=== PATIENT | female | born 1950 | race Caucasian/White ===

== ENCOUNTER 2016-03-26 13:01 | Inpatient (IN) | payer OTHER, MEDICARE ==
[~2016-03-26] VITALS: Ht 162.6 cm; Wt 64.0 kg
--- NOTE | ~2016-03-26 | HC ---
[facility] [place] [address] CONSULTATION Name: JD DREW Room #: 309-P ADM IN M.R.#: [id number] Admission: 03/26/16 Attend Phys: Valerio Robbins Discharge: Date of : 46 Report #: [id number] THIS REPORT FOR: //name// CC: Gus Robbins DATE OF SERVICE: 03/26/2016 REASON FOR CONSULTATION: Respiratory failure. IMPRESSION: 1. Respiratory failure. Exacerbation of chronic obstructive pulmonary disease. 2. Possible pneumonia. 3. Anemia. 4. Leukocytosis. 5. Gastroesophageal reflux disease. PLAN: Agree with IV antibiotics, corticosteroids, workup as pneumonia. We will do CT PE protocol and aerosol therapy. We will follow closely with you. HISTORY OF PRESENT ILLNESS: A 65-year-old female treated with p.o. antibiotics as an outpatient. She relates about 5 rounds, however, still with cough, shortness breath, and weakness. Found to have a temperature today and worsening. MEDICATIONS: Include calcium, Protonix, pravastatin, losartan, Zyrtec, Mucinex, Ventolin, azelastine, Refresh, prednisone 20 mg, Advair 250, Spiriva, has been on Cipro and albuterol. PAST HISTORY: Includes COPD, GERD, pneumothorax, has had bladder leakage. PAST SURGICAL HISTORY: Included ____, pneumolysis, right thoracotomy with pleural decortication, and ovary removal in 80. FAMILY HISTORY: Positive for heart disease and CVA. SOCIAL HISTORY: Positive tobacco, quit greater than 20 years ago. Negative significant ETOH. ALLERGIES: MORPHINE. REVIEW OF SYSTEMS: Positive shortness breath, cough. No definite chest pain. No nausea or vomiting. Positive GERD. Positive seasonal allergy. Positive back pain in the past. PHYSICAL EXAMINATION: [facility] [address] [place] [address] CONSULTATION Name: JD DREW Room #: 309-P [facility] IN M.R.#: [id number] Admission: 03/26/16 Attend Phys: Valerio Robbins Discharge: Date of : 46 Report #: [id number] VITAL SIGNS: Sat 99%. Vitals not in computer yet. LUNGS: Coarse bilateral. HEART: Regular. Sinus is nontender. EXTREMITIES: Showed no edema or calf tenderness. NEUROLOGIC: Alert and oriented, recognized me. LABORATORY DATA: BUN 38, creatinine 1.2, potassium 5, calcium 10.2. White count 15.1, hemoglobin 9, platelets 599. We will work up her for anemia also. <ELECTRONICALLY SIGNED> By: Hardeep Grissom MD 03/27/161910 20 30 Hardeep Grissom MD /nt
--- NOTE | ~2016-03-26 | CNG ---
[facility] [address] [place] [address] CYTO-NONGYN REPORT PROCEDURE Name: JD MORALES Room #: 309-P ADM IN M.R.#: [id number] Admission: 03/26/16 Date of : 46 Discharge: Report #: [id number] Path Case #: [id number] CYTOPATHOLOGY REPORT COLLECTION DATE: 04/03/2016 RECEIVED DATE: 04/03/2016 SUBMITTING PHYS: Dr. Hardeep Grissom OTHER PHYS: Dr. Valerio Hernandez CLINICAL HISTORY: COPD Exacerbation. SPECIMEN(S) RECEIVED: A.Sputum * * * * * * * * * * * * FINAL DIAGNOSIS: A. Sputum: - No malignant cells identified. -Alveolar macrophages, occasional bronchial epithelial cells, squamous epithelial cells, amorphous debris and acute and chronic inflammatory cells identified. PATHOLOGIST: Shey Barrett M.D. REPORT ELECTRONICALLY SIGNED BY: Shey Barrett M.D. DATE/TIME: 04/04/2016 10:29 * * * * * * * * * * * * GROSS PATHOLOGY: A. Sputum: The specimen is submitted unfixed, labeled "Jd Morales". Received by the Cytology Department is less than one mL of yellow fluid. One ThinPrep slide was prepared. (clt 04.03.2016) BOX CAR LOADER(S): MICHELINE Michelle([facility]) INITIAL CPT CODE(S): A; 14948 Professional services performed by [facility] at [facility] [address], [place] [address] Technical services performed by [facility] at [address] [place] [address]., [address], [place] [address]. [facility] [address] [place] [address], [address] [place], [place] [address] [place] [address] [place] [address] CYTO-NONGYN REPORT PROCEDURE Name: VIKIJDCathy VELASQUEZ Room #: 309-P ADM IN M.R.#: [id number] Admission: 03/26/16 Date of : 46 Discharge: Report #: [id number] Path Case #: [id number] PHONE: [phone] DIRECTOR: Charbel Downey M.D. * * * END OF REPORT * * *
--- NOTE | ~2016-03-26 | S ---
[facility] [place] [address] [place] [address] SURGICAL PATH RPT PROCEDURE Name: JD MORALES EVA Room #: 309-P ADM IN M.R.#: [id number] Admission: 03/26/16 Date of : 46 Discharge: Report #: [id number] Path Case #: [id number] PATHOLOGY REPORT COLLECTION DATE: 03/30/2016 RECEIVED DATE: 03/30/2016 SUBMITTING PHYS: Dr. Selvin Rivera OTHER PHYS: Dr. Valerio Hernandez SPECIMEN(S) RECEIVED: A.Polyps cecum x2 B.Polyp ascending colon * * * * * * * * * * * * FINAL DIAGNOSIS: A. "Polyps cecum x 2", biopsy: - Tubular adenoma; no high grade dysplasia. B. "Polyp ascending colon", biopsy: - Tubular adenoma; no high grade dysplasia. (CLW:all; d/t: 04/02/2016) PATHOLOGIST: Shey Barrett M.D. REPORT ELECTRONICALLY SIGNED BY: Shey Barrett M.D. DATE/TIME: 04/02/2016 21:35 * * * * * * * * * * * * GROSS PATHOLOGY: A. Received in formalin labeled "Jd Morales and polyps cecum 2," are 2 segments of [place] soft tissue measuring 0.8 x 0.2 x 0.2 cm in aggregate dimensions and measuring 0.2 and 0.6 cm in maximum dimension. The specimen is submitted entirely in cassette A1. B. Received in formalin labeled "Jd Morales and polyp ascending colon," is a segment of [place] soft tissue measuring 0.5 cm in maximum dimension. The specimen is submitted entirely in cassette B1. (TTL; 03/30/2016) CLINICAL HISTORY: Anemia, Hemoccult positive INITIAL CPT CODE(S): A; 66081 B; 38596 Professional [facility] by [facility] [address] [place] [address] SURGICAL PATH RPT PROCEDURE Name: JD MORALES Room #: 309-P ADM IN .R.#: [id number] Admission: 03/26/16 Date of : 46 Discharge: Report #: [id number] Path Case #: [id number] [address] [facility] , [place] [address] Technical services performed by [facility] at [address] [place] [address], [address] [address]. [facility] [place] [address] PHONE: [phone] DIRECTOR: Charbel Downey M.D. * * * END OF REPORT * * *
[~2016-03-26 13:01] MED LIST: 8 HOUR PAIN RE650 M1 PO; ACETAMINOPHEN325 M1 PO; ADULT LOW DOSE81 MG PO; ADVAIR 250-501 EACH INH; AFLURIA 2045 MCG/0.4; ALBUTEROL2.5 MG/0.5 INH; ASPIRIN EC81 M1 PO; ASTELIN30 ML NS; AVELOX 400 MG400 MG PO; AZITHROMYCIN 2250 MG PO; CALCIUM + VIT1 EACH PO; CALCIUM 500 +1 EAC5 PO; CENTRUM SILVER1 EAC4 PO; CETAPHIL MOISTU90 GM TOP; CIPRO500 MG PO; CLARITIN10 M2 PO; DUONEB 2.5-0.5 M3 ML INH; FLAGYL500 MG PO; MUCINEX TA600 MG/TA1 PO; MUCINEX TA600 MG/TA2 PO; NORCO 5-325 TA1 EACH PO; NORVASC5 M1 PO; OXYCODONE-ACET1 EACH PO; PANTOPRAZOLE SO40 M1 PO; PNEUMOVAX25 MCG/0.5; PRAVACHOL40 MG PO; PREDNISONE 10 M10 M1 PO; PREDNISONE 10 M10 MG PO; SPIRIVA INH; SPIRIVA PO; TAMIFLU PO; VENTOLIN HFA INH8 GM INH; ZANTAC 150MG T150 M1 PO; ZOCOR40 MG PO; ZYRTEC 10 MG TA10 MG PO
[2016-03-26] MEDS ORDERED: CIPRO500 MG PO (13:23)
[2016-03-26] MEDS ORDERED: CALCIUM GUMMIE1 EACH PO (13:26)
[2016-03-26] MEDS ORDERED: REFRESH OPTIVE1 EACH OP (13:26)
[2016-03-26] MEDS ORDERED: PRAVACHOL40 M1 PO (13:27)
[2016-03-26] MEDS ORDERED: CENTRUM SILVER1 EAC4 PO (13:28)
[2016-03-26] MEDS ORDERED: COZAAR 50 MG TA50 M2 PO (13:29)
[2016-03-26] MEDS ORDERED: LUTEIN 15 MG S1 EACH PO (13:30)
[2016-03-26 15:00] LABS: HEMATOCRIT 28.1 % (37.0-47.0); MCH 27.3 pg (26.0-34.0); MCHC 31.9 % (28.0-37.0); MCV 85.8 fL (80.0-100.0); RBC 3.28 mil/uL (4.20-5.00); RDW 14.5 % (10.5-14.5); WBC 15.1 thou/uL (4.0-11.0)
[2016-03-26 15:14] LABS: CALCIUM 10.2 mg/dL (8.5-10.1); CREATININE 1.2 mg/dL (0.6-1.3)
[2016-03-26 16:35] VITALS: BP 144/61
[2016-03-26 20:00] VITALS: BP 149/55
[2016-03-27 00:08] VITALS: BP 138/51
[2016-03-27 04:41] VITALS: BP 132/50
[2016-03-27 06:08] LABS: % SATURATION 10 % (15-55); FERRITIN 32 ng/mL (15-150); FOLIC ACID > 19.9 ng/mL (>3.0); IRON 24 ug/dL (27-139); TIBC 232 ug/dL (250-450); UIBC 208 ug/dL (118-369)
[2016-03-27 06:34] LABS: ABSOLUTE NEUTROPHILS 7.1 thou/uL (1.4-8.2); BASOPHILS 0.2 % (0.0-2.0); HEMATOCRIT 26.3 % (37.0-47.0); HEMOGLOBIN 8.3 gm/dL (12.0-15.0); LYMPHOCYTES 5.7 % (24.0-44.0); MCH 27.5 pg (26.0-34.0); MCHC 31.7 % (28.0-37.0); MONOCYTES 4.3 % (1.0-8.0); PLATELET COUNT 562 thou/uL (150-400); POLYS 89.8 % (36.0-66.0); RBC 3.02 mil/uL (4.20-5.00); RDW 14.4 % (10.5-14.5); WBC 7.9 thou/uL (4.0-11.0)
[2016-03-27 07:04] LABS: MANUAL DIFF NO
[2016-03-27 08:00] VITALS: BP 149/50
[2016-03-27 16:00] VITALS: BP 135/52
[2016-03-27 20:32] VITALS: BP 143/54
[2016-03-28 04:00] VITALS: BP 137/67
[2016-03-28 07:22] VITALS: BP 151/53
[2016-03-28 16:52] VITALS: BP 176/76
[2016-03-28 19:30] VITALS: BP 165/64
[2016-03-29 03:20] VITALS: BP 160/58
[2016-03-29 06:23] LABS: HEMATOCRIT 28.3 % (37.0-47.0); HEMOGLOBIN 8.8 gm/dL (12.0-15.0); MCH 27.1 pg (26.0-34.0); MCHC 31.2 % (28.0-37.0); MCV 86.9 fL (80.0-100.0); PLATELET COUNT 618 thou/uL (150-400); RBC 3.25 mil/uL (4.20-5.00); RDW 14.7 % (10.5-14.5); WBC 14.2 thou/uL (4.0-11.0)
[2016-03-29 06:30] LABS: CALCIUM 9.8 mg/dL (8.5-10.1); CREATININE 1.2 mg/dL (0.6-1.3); MANUAL DIFF YES; POTASSIUM 4.1 mmol/L (3.5-5.1)
[2016-03-29 07:55] LABS: ABSOLUTE NEUTROPHILS 13.6 thou/uL (1.4-8.2); TOTAL CELL COUNT 100
[2016-03-29 07:56] LABS: ANISOCYTOSIS 1+; HYPOCHROMASIA 1+; OVALOCYTES FEW
[2016-03-29 08:32] VITALS: BP 137/64
[2016-03-29 11:04] VITALS: BP 169/82
[2016-03-29 18:34] VITALS: BP 170/56
[2016-03-29 19:32] VITALS: BP 161/74
[2016-03-30 02:39] VITALS: BP 154/48
[2016-03-30 05:42] LABS: HEMOGLOBIN 8.9 gm/dL (12.0-15.0); MCH 27.2 pg (26.0-34.0); MCHC 31.7 % (28.0-37.0); MCV 85.9 fL (80.0-100.0); PLATELET COUNT 574 thou/uL (150-400); RBC 3.26 mil/uL (4.20-5.00); RDW 14.5 % (10.5-14.5); WBC 12.6 thou/uL (4.0-11.0)
[2016-03-30 05:52] LABS: MANUAL DIFF YES
[2016-03-30 06:14] LABS: CALCIUM 9.3 mg/dL (8.5-10.1); CREATININE 1.1 mg/dL (0.6-1.3); POTASSIUM 4.7 mmol/L (3.5-5.1)
[2016-03-30 08:00] VITALS: BP 141/79
[2016-03-30 08:36] LABS: ABSOLUTE NEUTROPHILS 11.8 thou/uL (1.4-8.2); TOTAL CELL COUNT 100
[2016-03-30 08:37] LABS: ANISOCYTOSIS 1+; OVALOCYTES 1+
[2016-03-30 16:00] VITALS: BP 155/76
[2016-03-30 19:00] VITALS: BP 146/60
[2016-03-30 19:07] LABS: ALPHA 1 0.2 g/dL (0.0-0.4); ALPHA 2 0.9 g/dL (0.4-1.0); GAMMA 0.8 g/dL (0.4-1.8); M-SPIKE Not Observed g/dL (Not Observed)
[2016-03-31 03:41] VITALS: BP 127/50
[2016-03-31 06:09] LABS: HEMATOCRIT 26.5 % (37.0-47.0); HEMOGLOBIN 8.4 gm/dL (12.0-15.0); MCH 27.5 pg (26.0-34.0); MCHC 31.9 % (28.0-37.0); MCV 86.4 fL (80.0-100.0); RBC 3.06 mil/uL (4.20-5.00); RDW 14.7 % (10.5-14.5); WBC 11.6 thou/uL (4.0-11.0)
[2016-03-31 06:30] LABS: CALCIUM 9.2 mg/dL (8.5-10.1); CREATININE 0.9 mg/dL (0.6-1.3)
[2016-03-31 07:12] VITALS: BP 133/43
[2016-03-31 14:40] VITALS: BP 124/51
[2016-03-31 20:00] VITALS: BP 152/66
[2016-04-01 01:07] LABS: INFLUENZA B Negative (Negative); METAPNEUMOVIRUS Negative (Negative)
[2016-04-01 04:00] VITALS: BP 147/63
[2016-04-01 04:04] LABS: HEMATOCRIT 27.9 % (37.0-47.0); MCH 27.6 pg (26.0-34.0); MCHC 32.2 % (28.0-37.0); MCV 85.8 fL (80.0-100.0); RBC 3.25 mil/uL (4.20-5.00); RDW 14.8 % (10.5-14.5); WBC 11.7 thou/uL (4.0-11.0)
[2016-04-01 07:30] VITALS: BP 133/70
[2016-04-01 12:00] VITALS: BP 134/66
[2016-04-01 16:00] VITALS: BP 132/72
[2016-04-01 19:45] VITALS: BP 150/57
[2016-04-02 04:16] VITALS: BP 135/45
[2016-04-02 05:27] LABS: HEMATOCRIT 28.2 % (37.0-47.0); HEMOGLOBIN 8.8 gm/dL (12.0-15.0); MCH 27.1 pg (26.0-34.0); MCHC 31.2 % (28.0-37.0); MCV 86.9 fL (80.0-100.0); PLATELET COUNT 474 thou/uL (150-400); RBC 3.25 mil/uL (4.20-5.00); RDW 14.5 % (10.5-14.5); WBC 11.5 thou/uL (4.0-11.0)
[2016-04-02 05:33] LABS: CALCIUM 9.4 mg/dL (8.5-10.1); CREATININE 0.9 mg/dL (0.6-1.3); POTASSIUM 4.1 mmol/L (3.5-5.1)
[2016-04-02 05:34] LABS: MANUAL DIFF YES
[2016-04-02 07:48] LABS: ABSOLUTE NEUTROPHILS 10.7 thou/uL (1.4-8.2); TOTAL CELL COUNT 100
[2016-04-02 07:49] LABS: ANISOCYTOSIS 1+; MICROCYTES 1+; OVALOCYTES FEW
[2016-04-02 11:00] VITALS: BP 136/64
[2016-04-02 15:36] VITALS: BP 129/49
[2016-04-02 20:30] VITALS: BP 144/62
[2016-04-03 04:45] VITALS: BP 164/70
[2016-04-03 08:38] VITALS: BP 126/60
[2016-04-03 16:41] VITALS: BP 119/55
[2016-04-03 20:00] VITALS: BP 127/66
[2016-04-04 04:00] VITALS: BP 156/70
[2016-04-04 08:12] VITALS: BP 141/65
== END 2016-04-04 15:30 | DRG 871 ==
LOC: 3N 13:01
PROVIDERS: Family Medicine; Hospitalist; Internal Medicine Pulmonary Disease
PROC: 0DBK8ZX Excision of Ascending Colon, Via Natural or Artificial Opening Endoscopic, Diagnostic (ICD-10-PCS; principal; 2016-03-30)
PROC: 0DBH8ZX Excision of Cecum, Via Natural or Artificial Opening Endoscopic, Diagnostic (ICD-10-PCS; principal; 2016-03-30)
PROC: 0DJ08ZZ Inspection of Upper Intestinal Tract, Via Natural or Artificial Opening Endoscopic (ICD-10-PCS; principal; 2016-03-30)
DX: A41.9 Sepsis, unspecified organism (principal); J18.9 Pneumonia, unspecified organism; J96.20 Acute and chronic respiratory failure, unspecified whether with hypoxia or hypercapnia; J44.1 Chronic obstructive pulmonary disease with (acute) exacerbation; D12.0 Benign neoplasm of cecum; K44.9 Diaphragmatic hernia without obstruction or gangrene; K57.90 Diverticulosis of intestine, part unspecified, without perforation or abscess without bleeding; D50.9 Iron deficiency anemia, unspecified; K64.8 Other hemorrhoids; D12.2 Benign neoplasm of ascending colon; D63.8 Anemia in other chronic diseases classified elsewhere; K59.00 Constipation, unspecified; K21.9 Gastro-esophageal reflux disease without esophagitis; Z87.891 Personal history of nicotine dependence; Z90.710 Acquired absence of both cervix and uterus; Z90.49 Acquired absence of other specified parts of digestive tract; Z98.890 Other specified postprocedural states; Z88.8 Allergy status to other drugs, medicaments and biological substances; Z82.49 Family history of ischemic heart disease and other diseases of the circulatory system; Z82.3 Family history of stroke
CPT/HCPCS: 10795; 62110; 62900; 70005

== ENCOUNTER → 2016-06-22 | Outpatient (CLI) | payer OTHER, MEDICARE ==
[~2016-06-22] MED LIST changes: +CALCIUM GUMMIE1 EACH PO; +COZAAR 50 MG TA50 M2 PO; +LUTEIN 15 MG S1 EACH PO; +PRAVACHOL40 M1 PO; +REFRESH OPTIVE1 EACH OP
== END ==
LOC: RAD 12:44
DX: J44.9 Chronic obstructive pulmonary disease, unspecified (principal); R06.02 Shortness of breath; J98.11 Atelectasis; J98.4 Other disorders of lung; R91.8 Other nonspecific abnormal finding of lung field

== ENCOUNTER 2016-07-23 15:38 | Inpatient (IN) | payer OTHER, MEDICARE ==
[~2016-07-23] VITALS: Ht 162.6 cm; Wt 63.5 kg
--- NOTE | ~2016-07-23 | EKG ---
[address] [address] ELECTROCARDIOGRAM REPORT Name: JD DREW Room #: 426-P ADM IN M.R.#: [id number] Admission: 07/23/16 Attend Phys: Moreno Sebastian MD Discharge: Date of : 46 Report #: [id number] THIS REPORT FOR: //name// [facility] ED Test Date: 2016-07-23 Test Time: 16:57:23 Pat Name: JD DREW Department: Room: [facility] Gender: F Loss Prevention Leader: MZOOK : 1950 Requested By: Rupert Sam Order Number: [id number] MD: Horacio Can Measurements Intervals [place] Rate: 97 P: 79 NM: 117 QRS: 83 QRSD: 90 T: 67 QT: 324 QTc: 412 Interpretive Statements Sinus rhythm Borderline short NM interval Right atrial enlargement Borderline right axis deviation Compared to ECG 10/22/2013 15:14:30 Sinus tachycardia no longer present Electronically Signed On 07-25-2016 9:47:29 CDT by Horacio Can [email or web address] <ELECTRONICALLY SIGNED> By: Horacio Can MD 07/25/16 0947 1657 1657 Horacio Can MD /[facility]
--- NOTE | ~2016-07-23 | HC ---
[facility] [place] [address] [place] [address] CONSULTATION Name: JD DREW Room #: 426-P ADM IN M.R.#: [id number] Admission: 07/23/16 Attend Phys: Moreno Sebastian MD Discharge: Date of : 46 Report #: [id number] THIS REPORT FOR: //name// CC: Gus Sebastian PRIMARY CARE PHYSICIAN: Dr. Gus Hernandez. REFERRAL PHYSICIAN: Dr. Sebastian. REASON FOR REFERRAL: Dyspnea. HISTORY OF PRESENT ILLNESS: The patient is a 66-year-old white female who presents to the Emergency Room with progressive dyspnea. She has known COPD. A pulmonary consultation was requested. The patient is normally followed longitudinally by Dr. Shahzad Colmenares for COPD. She has chronic hypoxic respiratory failure on 4 liters of O2. She is normally on Spiriva, Advair, Ventolin, aerosolized albuterol. According to the patient, she has been doing fairly well until in January when she started to have episodic recurrent exacerbations. More recently, she was treated for exacerbation of COPD along with corticosteroids and antibiotics. She improved only to have symptoms recur several days later. On this occasion, she presents with a 2-week history of progressive dyspnea. Otherwise, denies any chest pain, productive cough, night sweats or chills, nausea, vomiting, diarrhea. PAST MEDICAL AND SURGICAL HISTORY: Notable for COPD, history of pneumothorax twice in the past on the right side, gastroesophageal reflux disease with a history of ischemic colitis, appendectomy, hysterectomy. ALLERGIES: MORPHINE, reactions not specified. HOME MEDICATIONS: List reviewed. FAMILY HISTORY: Noncontributory. SOCIAL HISTORY: She has smoked most of her life, having quit smoking over about a year ago. She denies any alcohol use. REVIEW OF SYSTEMS: As mentioned above, otherwise 10-point system review negative. [facility] [address] [place] [address] CONSULTATION Name: JD DREW Room #: 426-P [facility] IN ..#: [id number] Admission: 07/23/16 Attend Phys: Moreno Sebastian MD Discharge: Date of : 46 Report #: [id number] PHYSICAL EXAMINATION: GENERAL: She is awake, alert, in mild respiratory distress. VITAL SIGNS: Temperature is 98 degrees Fahrenheit, pulse is 81, respiratory rate is 18, blood pressure 122/78 mmHg, saturation 97%. HEENT: Unremarkable. NECK: Supple, without lymphadenopathy or thyromegaly. CHEST: Breath sounds are decreased bilaterally with mildly prolonged expiratory phase. No rales. CARDIOVASCULAR: Normal S1, S2. No murmurs or gallop. There is no JVD. There is no carotid bruit. Pulses are 2+ and 4+ bilaterally. ABDOMEN: Soft, nontender, no organomegaly or masses felt. GENITOURINARY AND RECTAL: Deferred. EXTREMITIES: There is no edema, cyanosis or clubbing. LABORATORY DATA: Portable chest x-ray shows bilateral apical pulmonary fibrosis, volume loss, these appears to be all chronic. Electrolytes unremarkable. Creatinine 1.1. WBC 12,600, hemoglobin is 8.8, platelets are normal. Arterial blood gas revealed pH of 7.39, pCO2 of 56, pO2 of 108 on 5 liters of O2. Albumin is 2.7. IMPRESSION: 1. Exixn-bd-[id number] hypercapnic-hypoxic respiratory failure in this 66-year-old white female. Etiology exacerbation of chronic obstructive pulmonary disease. Chest x-ray shows chronic changes, but cannot rule out possibility of lower respiratory tract infections. 2. Chronic obstructive pulmonary disease, severity unknown with recurrent exacerbation since January 2016, etiology of this is unclear. 3. Chronic hypoxic-hypercapnic respiratory failure, she is normally on 3-4 liters of O2 at home. 4. Protein calorie malnutrition, severe with an albumin of 2.7. RECOMMENDATIONS: Agree with current treatment plans including corticosteroids, bronchodilators, and broad spectrum antibiotics. She was last hospitalized in March, but I think it is reasonable to cover for nosocomial infections given that it is somewhat close to the timeframe. DVT and GI prophylaxis will be recommended. She should be followed closely as an outpatient given frequent exacerbations and notably since January 2016. Cause of this is unclear, but would benefit from . By: 1402 16 Srinivas Mckeon MD /nt
[2016-07-23 16:10] VITALS: BP 145/109
[2016-07-23 16:56] LABS: HEMATOCRIT 29.7 % (37.0-47.0); HEMOGLOBIN 9.4 gm/dL (12.0-15.0); MCH 27.8 pg (26.0-34.0); MCHC 31.7 g/dL (28.0-37.0); MCV 87.5 fL (80.0-100.0); PLATELET COUNT 693 thou/uL (150-400); RBC 3.39 mil/uL (4.20-5.00); RDW 14.6 % (10.5-14.5)
[2016-07-23 17:04] LABS: MANUAL DIFF YES
[2016-07-23 17:07] LABS: CALCIUM 9.8 mg/dL (8.5-10.1); CREATININE 1.2 mg/dL (0.6-1.0); POTASSIUM 4.3 mmol/L (3.5-5.1)
[2016-07-23 17:21] LABS: ABSOLUTE NEUTROPHILS 14.6 thou/uL (1.4-8.2); LARGE PLATELETS FEW; PLATELET ESTIMATE INCREASED; TOTAL CELL COUNT 100
[2016-07-23 17:22] LABS: ANISOCYTOSIS SLIGHT
[2016-07-23 17:24] LABS: ALBUMIN 2.7 g/dL (3.4-5.0); TOTAL BILIRUBIN 0.1 mg/dL (<0.1-1.0); TOTAL PROTEIN 7.8 g/dL (6.4-8.2)
[2016-07-23 17:58] LABS: ABG SAMPLE TYPE ARTERIAL; BE(vivo) 8.1 mmol/L (-2 to +3); HCO3 34.2 mmol/L (22.0-26.0); LACTATE 1.18 mmol/L (0.5-2.0); O2(CT) 13.7 mL/dL (15.0-23.0); O2Hb 97.1 % (92.0-98.0); PCO2 56.9 mmHg (35.0-45.0); PO2 108.3 mmHg (80.0-100.0); STICK SITE L.BRACHIAL; pH 7.397 (7.360-7.450); sO2 97.8 % (92.0-98.0)
[2016-07-23 21:00] VITALS: BP 155/49
[2016-07-23] MEDS ORDERED: IRON325 PO (21:11)
[2016-07-23] MEDS ORDERED: COLACE100 MG PO (21:12)
[2016-07-24 04:30] VITALS: BP 142/70
[2016-07-24 05:40] LABS: CALCIUM 9.1 mg/dL (8.5-10.1); CREATININE 1.1 mg/dL (0.6-1.0); POTASSIUM 4.4 mmol/L (3.5-5.1)
[2016-07-24 05:42] LABS: HEMATOCRIT 27.5 % (37.0-47.0); HEMOGLOBIN 8.8 gm/dL (12.0-15.0); MCH 28.5 pg (26.0-34.0); MCHC 32.1 g/dL (28.0-37.0); MCV 88.7 fL (80.0-100.0); RBC 3.1 mil/uL (4.20-5.00); RDW 14.5 % (10.5-14.5); WBC 12.6 thou/uL (4.0-11.0)
[2016-07-24 07:11] VITALS: BP 122/78
[2016-07-24 15:35] VITALS: BP 155/52
[2016-07-24 20:00] VITALS: BP 157/66
[2016-07-25 04:00] VITALS: BP 149/47
[2016-07-25 06:28] LABS: HEMATOCRIT 27.5 % (37.0-47.0); MCH 28.7 pg (26.0-34.0); MCHC 32.7 g/dL (28.0-37.0); MCV 87.8 fL (80.0-100.0); RBC 3.13 mil/uL (4.20-5.00); RDW 14.6 % (10.5-14.5); WBC 13.8 thou/uL (4.0-11.0)
[2016-07-25 06:40] LABS: CALCIUM 9.1 mg/dL (8.5-10.1); CREATININE 1.1 mg/dL (0.6-1.0); POTASSIUM 4.1 mmol/L (3.5-5.1)
[2016-07-25 06:58] VITALS: BP 145/79
[2016-07-25 20:00] VITALS: BP 187/84
[2016-07-26 04:09] VITALS: BP 140/49
[2016-07-26 05:28] LABS: HEMATOCRIT 27.9 % (37.0-47.0); MCH 28.3 pg (26.0-34.0); MCHC 32.1 g/dL (28.0-37.0); MCV 88.2 fL (80.0-100.0); RBC 3.17 mil/uL (4.20-5.00); RDW 14.3 % (10.5-14.5)
[2016-07-26 05:47] LABS: CALCIUM 9.1 mg/dL (8.5-10.1); CREATININE 1.1 mg/dL (0.6-1.0); POTASSIUM 4.5 mmol/L (3.5-5.1)
[2016-07-26 07:00] VITALS: BP 157/94
[2016-07-26 15:04] VITALS: BP 156/65
[2016-07-26 20:00] VITALS: BP 123/80
[2016-07-27 04:00] VITALS: BP 145/53
[2016-07-27 05:47] LABS: HEMATOCRIT 28.6 % (37.0-47.0); HEMOGLOBIN 9.3 gm/dL (12.0-15.0); MCH 28.7 pg (26.0-34.0); MCHC 32.5 g/dL (28.0-37.0); MCV 88.2 fL (80.0-100.0); RBC 3.24 mil/uL (4.20-5.00); RDW 14.9 % (10.5-14.5); WBC 15.6 thou/uL (4.0-11.0)
[2016-07-27 06:05] LABS: CALCIUM 8.8 mg/dL (8.5-10.1); POTASSIUM 4.5 mmol/L (3.5-5.1)
[2016-07-27 07:02] VITALS: BP 167/77
[2016-07-27 15:54] VITALS: BP 132/51
[2016-07-27 20:00] VITALS: BP 149/60
[2016-07-28 04:00] VITALS: BP 138/52
[2016-07-28] MEDS ORDERED: AUGMENTIN 875875 MG PO (10:14)
[2016-07-28] MEDS ORDERED: DUONEB 2.5-0.5 M3 ML INH (10:15)
[2016-07-28] MEDS ORDERED: AMBIEN 5 MG TABL5 M1 PO (10:16)
[2016-07-28] MEDS ORDERED: PREDNISONE 10 M10 MG PO (10:19)
== END 2016-07-28 13:40 | DRG 871 ==
LOC: ER 15:38 → EROBS 18:11 → 4E 18:11
PROVIDERS: Hospitalist; Internal Medicine; Physician Assistant
DX: A41.9 Sepsis, unspecified organism (principal); J96.22 Acute and chronic respiratory failure with hypercapnia; J96.21 Acute and chronic respiratory failure with hypoxia; E43 Unspecified severe protein-calorie malnutrition; J15.6 Pneumonia due to other Gram-negative bacteria; J44.0 Chronic obstructive pulmonary disease with (acute) lower respiratory infection; J44.1 Chronic obstructive pulmonary disease with (acute) exacerbation; K21.9 Gastro-esophageal reflux disease without esophagitis; I10 Essential (primary) hypertension; E78.5 Hyperlipidemia, unspecified; J22 Unspecified acute lower respiratory infection; D64.9 Anemia, unspecified; D69.6 Thrombocytopenia, unspecified; Z88.6 Allergy status to analgesic agent; Z87.891 Personal history of nicotine dependence; Z90.49 Acquired absence of other specified parts of digestive tract; Z90.710 Acquired absence of both cervix and uterus; Z68.24 Body mass index [BMI] 24.0-24.9, adult; Z79.82 Long term (current) use of aspirin; Z79.899 Other long term (current) drug therapy; Z82.49 Family history of ischemic heart disease and other diseases of the circulatory system
CPT/HCPCS: 10183; 10783

== ENCOUNTER 2016-08-13 15:21 | Inpatient (IN) | payer OTHER, MEDICARE ==
[~2016-08-13] VITALS: Ht 162.6 cm; Wt 55.6 kg
--- NOTE | ~2016-08-13 | 2DMMODE ---
[facility] [address] [place] [address] 2 D/M-MODE ECHOCARDIOGRAM Name: VIKIJDCathy ROJASE Room #: 447-P ADM IN M.R.#: [id number] Admission: 08/13/16 Attend Phys: Rose Mary Andres Discharge: Date of : 46 Date of Service: 08/22/16 1551 Report #: [id number] THIS REPORT FOR: //name// APPROVED REPORT Study performed: 08/22/2016 13:17:59 EXAM: Comprehensive 2D, Doppler, and color-flow Echocardiogram Patient Location: Bedside Room #: [facility] Status: routine Other Information Study Quality: Fair Indications COPD Dyspnea Tachycardic 2D Dimensions LVEF(%): 71.49 (>50%) IVSd: 9.28 (7-11mm) LVOT Diam: 18.49 (18-24mm) LVDd: 41.81 mm PWd: 9.04 (7-11mm) Ascending Ao: 27.84 (22-36mm) LVDs: 24.93 (25-40mm) Aortic Root: 30.10 mm IVC: 1.60 mm Conte's LVEF: 71.49 % Volumes Left Atrial Volume (Systole) Single Plane 4CH: 17.99 mL Single Plane 2CH: 15.87 mL LA ESV Index: 14.00 mL/m2 Aortic Valve AoV Peak Gennaro.: 1.21 m/s AO Peak Gr.: 5.82 mmHg LVOT Max P.75 mmHg LVOT Max V: 1.09 m/s VIRIDIANA Vmax: 2.42 cm2 Pulmonary Valve PV Peak Gennaro.: 0.81 m/s PV Peak Gr.: 2.62 mmHg Tricuspid Valve TR Peak Gennaro.: 2.24 m/s RAP Estimate: 5.00 mmHg [facility] [place] [address] 2 D/M-MODE ECHOCARDIOGRAM Name: JD DREW EVA Room #: 447-P ADM IN M.R.#: [id number] Admission: 08/13/16 Attend Phys: Rose Mary Andres Discharge: Date of : 46 Date of Service: 08/22/16 1551 Report #: [id number] TR Peak Gr.: 20.10 mmHg PA Pressure: 25.00 mmHg Left Ventricle The left ventricle is normal size. Regional wall motion abnormalities cannot be excluded. There is normal left ventricular wall thickness. Left ventricular systolic function is mildly decreased. LVEF is 45%. This study is not technically sufficient to allow evaluation of the LV diastolic function due to tachycardia. Right Ventricle The right ventricle is normal size. The right ventricular systolic function is normal. Atria The left atrium size is normal. The right atrium size is normal. Aortic Valve The aortic valve is normal in structure. No aortic regurgitation. There is no aortic valvular stenosis. Mitral Valve Mild mitral annular calcification. Trace mitral regurgitation. No evidence of mitral valve stenosis. Tricuspid Valve The tricuspid valve is normal in structure. There is trace tricuspid regurgitation. The right atrial pressure is estimated at 5 mmHg. There is no pulmonary hypertension with an estimated PAP of 25 mmHg. Pulmonic Valve Pulmonic valve is not well visualized. There is no pulmonic valvular regurgitation. Great Vessels The aortic root is normal in size. The ascending aorta is normal in size. IVC is normal in size and collapses >50% with inspiration. Pericardium There is no pericardial effusion. <Conclusion> Very limited study [facility] [address] [place] [address] 2 D/M-MODE ECHOCARDIOGRAM Name: JD DREW Room #: 447-P ADM IN M.R.#: [id number] Admission: 08/13/16 Attend Phys: Rose Mary Andres Discharge: Date of : 46 Date of Service: 08/22/161550 Report #: [id number] Left ventricular systolic function is mildly decreased. LVEF is 45%. The aortic valve is normal in structure, no stenosos, trace aortic regurgitation. Mild mitral annular calcification. No mitral insufficiency Pulmonary artery pressure could not be reliably ascertained There is no pericardial effusion. <ELECTRONICALLY SIGNED> By: Luigi Zee MD, [facility] 08/22/161550 50 155 Luigi Zee MD, [facility] /INF
--- NOTE | ~2016-08-13 | P ---
[facility] [address] [place] [address] PROCEDURE REPORT Name: JD DREW Room #: 447-P ADM IN M.R.#: [id number] Admission: 08/13/16 Attend Phys: Werner Acuna MD Discharge: Date of : 46 Report #: [id number] THIS REPORT FOR: //name// CC: Gus Acuna DATE OF SERVICE: 08/20/2016 DATE OF SERVICE: 08/20/2016. PROCEDURE: Fiberoptic bronchoscopy with transbronchial biopsies of the left lower lobe infiltrate as well as cytologic brushings, microscopic brushings of the left lower lobe as well as bronchial lavage of the lingula on the left. INDICATION: Persistent diffuse pulmonary infiltrates, ASA classification class 3. PROCEDURE NOTATION: After discussing risks and benefits of planned procedure with the patient, she desired to proceed. After obtaining informed consent, she was brought to cheesemaking laborer room 3, placed on the fluoroscopy table and given 4% lidocaine nebulized to anesthetize the upper respiratory tract. Once accomplished, she received conscious sedation, a total of 3 mg of Versed was titrated during the procedure to provide adequate sedation. Once accomplished, bronchoscope was passed through an oral biteblock until the vocal cords were visualized. The vocal cords moved appropriately both before and after procedure. Then, 1% lidocaine was instilled in the vocal cords to provide topical anesthesia. Bronchoscope was then passed in the trachea, and 1% lidocaine was instilled in the tracheobronchial tree bilaterally for topical anesthesia. Once complete, the airways were surveyed. FINDINGS: Mainstem, lobar, segmental and subsegmental bronchi were explored with no significant anatomic variation. There was significant bronchiectasis noted scattered throughout. Because of the abnormalities noted on radiographic imaging, microscopic protected specimen brush was obtained in the left lower lobe and an area of purulence in the lateral segment. Several cytologic brushings were then obtained, and then, fluoroscopic-guided transbronchial biopsies were then obtained. Bronchoscope was then retracted and placed in the lingula; again, where some purulent secretions had been noted. A bronchial lavage was performed in this area. The patient tolerated well. No noted complications. IMPRESSION: Scattered pulmonary infiltrates with persistent fever, refractory to antibiotic therapy, status post bronchoscopy with fluoroscopic-guided transbronchial biopsy, cytologic brushings, microscopic brush and bronchoalveolar lavage. [address] [address] PROCEDURE REPORT Name: VIKIJD EVA Room #: 447-P [facility] IN .R.#: [id number] Admission: 08/13/16 Attend Phys: Werner Acuna MD Discharge: Date of : 46 Report #: [id number] PLAN: Await microbiologic, pathologic testing. <ELECTRONICALLY SIGNED> By: Gareth Tyson MD 08/23/16 1133 1537 2309 Gareth Tyson MD /nt
--- NOTE | ~2016-08-13 | EKG ---
[address] [address] ELECTROCARDIOGRAM REPORT Name: JD DREW Room #: 447-P ADM IN M.R.#: [id number] Admission: 08/13/16 Attend Phys: Werner Acuna MD Discharge: Date of : 46 Report #: [id number] THIS REPORT FOR: //name// [facility] ED Test Date: 2016-08-13 Test Time: 16:00:12 Pat Name: JD DREW Department: Room: [facility] Gender: F Site Supervisor: ashu : 1950 Requested By: Anita Man Order Number: [id number] MD: Horacio Can Measurements Intervals [place] Rate: 85 P: 73 FL: 111 QRS: 61 QRSD: 96 T: 59 QT: 354 QTc: 421 Interpretive Statements Sinus rhythm Borderline short [place] interval Compared to ECG 07/23/2016 16:57:23 Atrial abnormality no longer present Electronically Signed On 08-13-2016 21:22:23 CDT by Horacio Can [email or web address] <ELECTRONICALLY SIGNED> By: Horacio Can MD 08/13/162121 99 99 Horacio Can MD /HARMONY
--- NOTE | ~2016-08-13 | H ---
[facility] [place] [address] HISTORY AND PHYSICAL Name: JD DREW Room #: 447-P [facility] IN M.R.#: [id number] Admission: 08/13/16 Attend Phys: Werner Acuna MD Discharge: Date of : 48 Report #: [id number] THIS REPORT FOR: //name// CC: Gus Acuna DATE OF SERVICE: 08/13/2016 CHIEF COMPLAINT: Shortness of breath and fever. HISTORY OF PRESENT ILLNESS: The patient is a 66-year-old female with a history of COPD, recently hospitalized and discharged on July 28, for COPD exacerbation and pneumonia, presented back to the emergency room complaining of increasing shortness of breath over the last 4 days. She has also had fever since last Saturday. She was seen by her corrugated box machine operator, Dr. Corey Colmenares and was started on levofloxacin. The patient has had persistent fever on levofloxacin. She also states she has cough with green to yellow sputum, this is also blood-tinged over the last couple of days. She has lost around 10 pounds since discharge. No history of any chest pain, no nausea or vomiting, no history of any leg swelling. No dizziness. PAST MEDICAL HISTORY: Significant for COPD, admitted for COPD exacerbation recently. History of right pneumothorax, gastroesophageal reflux disease. No history of any coronary artery disease, history of ischemic colitis in 2012. Hypertension and dyslipidemia. The patient has a history of COPD and she normally uses oxygen at 4 liters per minute until her last admission in July when her oxygen was bumped is 6 liters per minute. She has been on prednisone 10 mg once a day since 2011. Recently her prednisone was bumped up to 40 mg once a day, and she is on a tapering dose, and presently, she is on prednisone 30 mg once a day. SOCIAL HISTORY: Ex-smoker, stopped smoking 16 years ago. No history of alcohol abuse or illicit drug abuse. FAMILY HISTORY: Significant for CAD and brother of cardiac arrest at age 46. ALLERGIES: She is allergic to MORPHINE. Please look at the nursing documentation for the reaction. HOME MEDICATIONS: Reviewed. Please look at the home medication reviewed by the nursing staff. REVIEW OF SYSTEMS: [address] [address] HISTORY AND PHYSICAL Name: JD DREW Room #: 447-P [facility] IN ..#: [id number] Admission: 08/13/16 Attend Phys: Werner Acuna MD Discharge: Date of : 48 Report #: [id number] CONSTITUTIONAL: She has lost weight around 10 pounds. She also complains of fever, but no chills. EYES: No change in vision. THROAT: Denies any sore throat. CARDIOVASCULAR: No chest pain, dizziness, palpitations. RESPIRATORY: As above. GASTROINTESTINAL: No nausea or vomiting. GENITOURINARY: No dysuria, hematuria. NEUROLOGIC: No focal numbness or weakness of the extremity. PSYCHIATRIC: No anxiety or depression. A 12-point review of systems is negative other than the positive and negative dictated in the history of present illness and the review of systems. PHYSICAL EXAMINATION: GENERAL: The patient is awake and alert, not in acute respiratory distress. VITAL SIGNS: Reviewed. Blood pressure was 150/49, heart rate of 95 per minute. She is presently on 6 liters of oxygen and she is saturating around 95%. HEENT: Throat appears normal. NECK: Supple, no JVD, no bruit, no lymphadenopathy. CARDIOVASCULAR SYSTEM: S1, S2, negative S3, no murmur. CHEST: Bilateral air entry present. Reduced breath sounds on the bases, bilateral scattered wheezes present. Expiration is prolonged. ABDOMEN: Soft, bowel sounds present, no mass, no organomegaly, no tenderness. PERIPHERY: No pedal edema. No calf tenderness. Dorsalis pedis 1+. NEUROLOGICAL: No gross motor or sensory deficit. LABORATORY AND DIAGNOSTIC DATA: Labs reviewed. EKG showed normal sinus rhythm, short OK interval, OK interval of 111. No significant ST segment changes. White count is 16.7, hemoglobin is 8.9, hematocrit is 28.7, RDW is 14.9, and platelet count is 639. ABG showed a pH of 7.43, pCO2 of 52, and pO2 95%; this was done on 7.5 liter nasal cannula. PT, PTT are within normal limit. CO2 on the basic metabolic panel is 36. BUN and creatinine are 33 and 1.0. Blood sugar was elevated at 268. ASSESSMENT AND PLAN: 1. Mpcfz-bv-mhfboim respiratory failure secondary to chronic obstructive pulmonary disease exacerbation. 2. Chronic obstructive pulmonary disease exacerbation. The patient will be switched to IV steroid. We will also continue with DuoNebs treatment. We will consult pulmonary. 3. Hemoptysis with pneumonia. The patient stated that her last sputum culture grew Pseudomonas. We will repeat a sputum culture and sensitivity. We will also consult infectious disease. The patient will be placed on IV Zosyn plus doxycycline. 4. Deep venous thrombosis prophylaxis, on SCD on the leg. [address] [address] HISTORY AND PHYSICAL Name: JD DREW Room #: 447-P [facility] IN .R.#: [id number] Admission: 08/13/16 Attend Phys: Werner Acuna MD Discharge: Date of : 48 Report #: [id number] 5. Hypertension. The patient will be continued on losartan. 6. Dyslipidemia. The patient will be continued on Pravachol. 7. Hyperglycemia, most likely related to steroids. We will check on her A1c level. She will also be placed on sliding scale insulin. Treatment plan has been explained to the patient in detail. <ELECTRONICALLY SIGNED> By: Werner Acuna MD 08/14/16 1653 1823 1926 Werner Acuna MD /nt
--- NOTE | ~2016-08-13 | HC ---
[facility] [place] [address] CONSULTATION Name: JD DREW Room #: 447-P ADM IN M.R.#: [id number] Admission: 08/13/16 Attend Phys: Werner Acuna MD Discharge: Date of : 48 Report #: [id number] THIS REPORT FOR: //name// CC: Gus Acuna PRIMARY CARE PHYSICIAN: Gus Hernandez M.D. REFERRAL PHYSICIAN: Anita Man DO. REASON FOR REFERRAL: Hemoptysis. HISTORY OF PRESENT ILLNESS: The patient is a 66-year-old white female with known severe COPD, presents to the Emergency Room with increasing dyspnea and hemoptysis. A pulmonary consultation was requested. The patient has known severe COPD. She was just hospitalized earlier this month. She was then discharged to rehabilitation. She was doing fairly well until a few days ago, she developed a febrile illness with temperature of 102.7 degrees Fahrenheit. She had myalgias. She was given Levaquin about a week ago. Her symptoms improved somewhat. With development of hemoptysis, it was recommended that the patient presented to Emergency Room. Otherwise, she denies any recent nausea, vomiting or diarrhea. She is followed longitudinally by Dr. Corey Colmenares. 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 She is on 4 liters of O2 chronically. She is normally on Spiriva, Advair, Ventolin and nebulized albuterol. She had been evaluated at [facility] for possible lung transplantation. She was felt not to be a candidate. The patient has felt fairly well until 01/2016, when she started to develop episodic recurrent bronchospasm. PAST MEDICAL AND SURGICAL HISTORY: As mentioned above, including severe COPD, history of pneumothorax times 2 on the right side, chronic bilateral apical fibrosis, gastroesophageal reflux disease and ischemic colitis in the past, appendectomy and hysterectomy. ALLERGIES: MORPHINE, reactions not specified. HOME MEDICATIONS: Reviewed, which include Augmentin, DuoNebs, Ambien, pulsed prednisone therapy, calcium supplements, Pravachol, Cozaar, Lutein, Ventolin, [facility] [address] [place] [address] CONSULTATION Name: JD DREW EVA Room #: 447-P [facility] IN .R.#: [id number] Admission: 08/13/16 Attend Phys: Werner Acuna MD Discharge: Date of : 48 Report #: [id number] Advair 250 one puff twice a day, Spiriva once a day, Zyrtec, Mucinex, Protonix and iron supplements. FAMILY HISTORY: Noncontributory. SOCIAL HISTORY: She has smoked most of her life until 2014. She denies any alcohol use. REVIEW OF SYSTEMS: As mentioned above. It is notable for frequent exacerbation since 01/2016. Otherwise, 10-point system review negative. PHYSICAL EXAMINATION: GENERAL: She is awake and alert, in mild distress. She appears mildly dyspneic. VITAL SIGNS: Temperature is 98.2 degrees Fahrenheit, pulse is 98, respiratory rate is 20, blood pressure 160/70 mmHg and saturation is 93% on 6 liters of O2. HEENT: Normocephalic and atraumatic. NECK: Supple, without any lymphadenopathy or thyromegaly. CHEST: Breath sounds are decreased bilaterally with mild expiratory wheezes. CARDIOVASCULAR: Heart sounds are distant. No obvious murmurs or gallop. There is no JVD. There is no carotid bruit. Pulses are 2+/4+ bilaterally. BREASTS: Exam is deferred. ABDOMEN: Soft and nontender, no organomegaly or masses felt. GENITOURINARY: Deferred. RECTAL: Deferred. EXTREMITIES: There is no edema, cyanosis or clubbing. LABORATORY DATA: Portable chest x-ray and chest CT were reviewed. No pulmonary embolus is noted, marked bilateral bullous emphysema is noted bilaterally. Infiltrates are seen in both upper lobes. Some dependent atelectasis is seen. Electrolytes are normal, except for bicarbonate at 36. WBC 16,700, hemoglobin is 8.9 and platelets are slightly increased. No obvious bandemia. Arterial blood gas revealed pH 7.44, pCO2 of 52, pO2 of 95 on 7.5 liters of O2. IMPRESSION: 1. Progressive cough and hemoptysis in this 66-year-old white female likely due to pneumonia. 2. Chronic obstructive pulmonary disease exacerbation, severe impairment. 3. Chronic hypoxic respiratory failure, baseline O2 need are 4, now with acute hypoxic respiratory failure. She is chronically hypercarbic with a baseline pCO2 probably around mid 50s. 4. Anemia with normal indices. Suspect due to chronic disease. 5. Remote history of pneumothorax times 2 on the right side. 6. Chronic bilateral upper lobe fibrosis. [address] [place] [address] CONSULTATION Name: JD DREW Room #: 447-[facility] IN M.R.#: [id number] Admission: 08/13/16 Attend Phys: Werner Acuna MD Discharge: Date of : 48 Report #: [id number] RECOMMENDATIONS: I agree with her treatment plans including corticosteroids, bronchodilators and broad-spectrum antibiotics. Infectious Disease has been consulted. Given the presence of bullous disease along with fibrosis, she may be at risk for developing Pseudomonas or other gram-negative organisms. DVT and GI prophylaxis will be addressed. Thank you for this consultation. <ELECTRONICALLY SIGNED> By: Srinivas Mckeon MD 08/15/16 1546 1224 0105 Srinivas Mckeon MD /nt
--- NOTE | ~2016-08-13 | D ---
[facility] [place] [address] [place] [address] DISCHARGE SUMMARY Name: JD DREW Room #: 447-P [facility] IN M.R.#: [id number] Admission: 08/13/16 Attend Phys: Werner Acuna MD Discharge: 08/27/16 Date of : 48 Report #: [id number] THIS REPORT FOR: //name// CC: Gus Acuna DATE OF SERVICE: 08/27/2016 HISTORY OF PRESENT ILLNESS: The patient is a 66-year-old female with complicated past medical history, including severe COPD, who was hospitalized here on 08/13/2016. This is her third hospitalization during this year. Most recently, she was hospitalized here early in July. At this time, the patient again presented with shortness of breath and fever. She was diagnosed with acute on chronic respiratory failure due to COPD exacerbation. She also had hemoptysis, and pneumonia was suspected. Please refer to the admission H and P for details. HOSPITALIZATION COURSE: The patient was hospitalized at [facility] for acute on chronic respiratory failure due to COPD exacerbation and pneumonia. As noted, the patient had hemoptysis. The patient was started on broad spectrum antibiotics. Breathing treatments were continued, as well as IV steroids. Rag Inspector and infectious disease specialist were consulted. The patient grew Enterobacter from sputum. Currently, the patient is on meropenem, as well as vancomycin and azithromycin. The patient's condition improved slightly, but she is still largely remained on significant amount of oxygen. Most of the time, the patient required between 7 and 12 liters of oxygen. At some point, the patient is still required BiPAP. The patient had bronchoscopy and BAL. On the BAL, there was Enterobacter . Due to very slow improvement, case assembler was involved, and the patient was recommended to transfer to the LT. The patient will be transferred to the [facility] for [facility] treatment. DISCHARGE DIAGNOSES: 1. Acute on chronic respiratory failure due to chronic obstructive pulmonary disease exacerbation and pneumonia. 2. Chronic obstructive pulmonary disease exacerbation. 3. Pneumonia, due to Enterobacter, detected in sputum and on bronchoalveolar lavage. 4. Congestive heart failure, systolic. Chronic, compensated. Left ventricular [facility] [address] [place] [address] DISCHARGE SUMMARY Name: JD DREW Room #: 447-P [facility] IN .R.#: [id number] Admission: 08/13/16 Attend Phys: Werner Acuna MD Discharge: 08/27/16 Date of : 48 Report #: [id number] ejection fraction of 45% in July of this year. Pulmonary artery pressure could not be assessed. 5. History of right pneumothorax. 6. Gastroesophageal reflux disease. DISCHARGE MEDICATIONS: Please refer to the medication reconciliation list. FOLLOWUP PLAN: Follow up with the primary care physician, with assisted living nursing director and infectious disease specialist as recommended after patient is discharged from [facility]. I spent greater than 30 minutes to coordinate the patient's discharge from the hospital. <ELECTRONICALLY SIGNED> By: Joseph Escobar MD 08/29/16 1807 1418 1602 Joseph Escobar MD /nt
--- NOTE | ~2016-08-13 | EKG ---
[place] [address] [employer] [place] [address] ELECTROCARDIOGRAM REPORT Name: JD DREW Room #: 447-P ADM IN M.R.#: [id number] Admission: 08/13/16 Attend Phys: Werner Acuna MD Discharge: Date of : 48 Report #: [id number] THIS REPORT FOR: //name// [facility] Test Date: 2016-08-22 Test Time: 12:03:47 Pat Name: JD DREW Department: Room: 447 Gender: F Computer System Specialist: ANDREA : 1950 Requested By: Joseph Escobar Order Number: [id number] MD: Luigi Zee Measurements Intervals Naoma Rate: 139 P: 64 IL: 126 QRS: -47 QRSD: 101 T: 112 QT: 296 QTc: 450 Interpretive Statements Sinus tachycardia Frequent premature supraventricular complexes Left anterior fascicular block Abnormal R-wave progression, early transition Nonspecific ST and T wave abnormality Compared to ECG 08/13/2016 16:00:12 Ventricular premature complex(es) now present Left anterior fascicular block now present Early R-wave progression now present nonspecific change in the ST and T-wave segments Electronically Signed On 08-23-2016 8:20:48 CDT by Luigi Zee [email or web address] <ELECTRONICALLY SIGNED> By: Luigi Zee MD, [facility] 08/23/16 0820 120 120 Luigi Zee MD, [facility] /EPI
--- NOTE | ~2016-08-13 | CNG ---
[facility] [place] [address] CYTO-NONGYN REPORT PROCEDURE Name: JD MORALES Room #: 447-P ADM IN M.R.#: [id number] Admission: 08/13/16 Date of : 48 Discharge: Report #: [id number] Path Case #: [id number] CYTOPATHOLOGY REPORT COLLECTION DATE: 08/21/2016 RECEIVED DATE: 08/21/2016 SUBMITTING PHYS: Dr. Gareth Tyson OTHER PHYS: Dr. Corey Hernandez CLINICAL HISTORY: Fever, coughing with blood and weakness. [id number] SPECIMEN(S) RECEIVED: A.Bronchial brushing, LLL B.Bronchial brush rinse, LLL C.Bronchoalveolar lavage, Lingula * * * * * * * * * * * * FINAL DIAGNOSIS: A. Lung, LLL, Bronchial brushing: - No malignant cells identified. - Reactive bronchial epithelial cells and blood identified B. Lung, LLL, Bronchial brush rinse: - No malignant cells identified. - Reactive bronchial epithelial cells identified. C. Lung, Lingula, Bronchoalveolar lavage: - No malignant cells identified. - Reactive bronchial epithelial cells, alveolar macrophages and squamous cells identified. PATHOLOGIST: Tiff Mason M.D. REPORT ELECTRONICALLY SIGNED BY: Tiff Mason M.D. DATE/TIME: 08/22/2016 16:12 * * * * * * * * * * * * GROSS PATHOLOGY: A. Bronchial brushing, LLL: The specimen is labeled "Jd Morales" and consists of three fixed slides. B. Bronchial brush rinse, LLL: The specimen is labeled "Jd Morales" and consists of a brush tip in fixative. One ThinPrep slide was prepared. C. Bronchoalveolar lavage, Lingula: The specimen is submitted unfixed, labeled "Jd Morales". Received by the Cytology Department is 15 mL of cloudy red fluid. One ThinPrep slide was prepared. (clt 08.21.2016) [address] [address] CYTO-NONGYN REPORT PROCEDURE Name: JD MORALES Room #: 447-P [facility] IN M.R.#: [id number] Admission: 08/13/16 Date of : 48 Discharge: Report #: [id number] Path Case #: [id number] MINERAL ENGINEER(S): MICHELINE Michelle(ASCP) INITIAL CPT CODE(S): A; 09767 B; 67224 C; 00853 Professional services performed by [facility] at [address], [place] [address] [facility] performed by [facility] at [address] [place] [address]., [address], [place] [address]. [facility], [address] [place] [address] PHONE: [phone] DIRECTOR: Charbel Downey M.D. * * * END OF REPORT * * *
--- NOTE | ~2016-08-13 | S ---
[facility] [place] [address] SURGICAL PATH RPT PROCEDURE Name: JD MORALES Room #: 447-P ADM IN M.R.#: [id number] Admission: 08/13/16 Date of : 48 Discharge: Report #: [id number] Path Case #: [id number] PATHOLOGY REPORT COLLECTION DATE: 08/20/2016 RECEIVED DATE: 08/21/2016 SUBMITTING PHYS: Dr. Gareth Tyson OTHER PHYS: Dr. Werner Acuna SPECIMEN(S) RECEIVED: A.Biopsy LLL * * * * * * * * * * * * FINAL DIAGNOSIS: "Bronch biopsy LLL", transbronchial biopsy: - Aveolated lung tissue with acute and chronic inflammation, reactive pneumocyte hyperplasia, focal organizing pneumonia and acute/subacute alveolar hemorrhage; no malignancy seen. (See comment). COMMENT: Please see also the cytology specimens ([id number]). A pharmacy services representative slide is co-reviewed with Dr. Tiff Mason. Clinical, radiographic and bronchoscopic correlation is required. The case is discussed with Dr. Gareth Tyson on 08/22/16 at approximately 12:30 PM. PATHOLOGIST: Shey Barrett M.D. REPORT ELECTRONICALLY SIGNED BY: Shey Barrett M.D. DATE/TIME: 08/22/2016 16:17 * * * * * * * * * * * * GROSS PATHOLOGY: The specimen is received in formalin, labeled "Jd Morales, LLL biopsy." Received is a 1.0 x 0.4 x 0.2 cm aggregate of pale del toro to red-brown, friable soft tissue. The specimen is filtered and submitted entirely in cassette A1. (KAH; 08/21/2016) CLINICAL HISTORY: Fever, coughing with blood and weakness INITIAL CPT CODE(S): A; 64910 Professional services performed by [facility] at [address] [address] SURGICAL PATH RPT PROCEDURE Name: JD MORALES Room #: 447-P ADM [facility].#: [id number] Admission: 08/13/16 Date of : 48 Discharge: Report #: [id number] Path Case #: [id number] [address] [facility] , [place] [address] [facility] performed by [facility] at [address] [place] [address], [address] [address]. [facility] [address] [place] [address] PHONE: [phone] DIRECTOR: Charbel Downey M.D. * * * END OF REPORT * * *
--- NOTE | ~2016-08-13 | HC ---
[facility] [place] [address] CONSULTATION Name: JD DREW Room #: 447-P ADM IN M.R.#: [id number] Admission: 08/13/16 Attend Phys: Werner Acuna MD Discharge: Date of : 48 Report #: [id number] THIS REPORT FOR: //name// CC: Gus Acuna REASON FOR CONSULTATION: I was asked to evaluate concerning pneumonia and hemoptysis. HISTORY OF PRESENT ILLNESS: The patient was a 66-year-old, underlying COPD who has had recurring cough, sputum production, intermittent fever and pulmonary infiltrates for the last 5 months. Most recently, she was hospitalized first part of the month with pulmonary infiltrate, cough with sputum production. Treated with antibiotic therapy. Most recently has developed a fever up to 102 degrees associated with hemoptysis. No pleuritic chest pain. She has been treated most recently with levofloxacin. Sputum production has been mostly yellowish in color until the hemoptysis started. There has been no nausea, vomiting or diarrhea. Sweats associated with her fevers. No weight loss. No history of tuberculosis. No history of pulmonary embolism. She does have gastroesophageal reflux. She has a history of ischemic colitis in 2012. She has COPD, intermittently on steroids and remains on oxygen per nasal cannula, anywhere from 4-6 liters. No travel. No HIV risk factors. IMMUNIZATIONS: Up to date for influenza, pneumonia. PAST MEDICAL HISTORY: COPD, multiple pneumonias, right pneumothorax, gastroesophageal reflux, ischemic colitis, hypertension, hyperlipidemia. FAMILY HISTORY: COPD, coronary artery disease. SOCIAL HISTORY: Past smoker. No significant alcohol intake. ALLERGIES: MORPHINE. MEDICATIONS: As noted on her MAR, now on doxycycline and Zosyn. REVIEW OF SYSTEMS: Noted above with no arthritis, rash, cardiac complaints, headache, change in mental status. PHYSICAL EXAMINATION: VITAL SIGNS: Afebrile and hemodynamically stable. She was on 6 liters of oxygen per nasal cannula. GENERAL: She had intermittent nonproductive cough. Alert, cooperative and pleasant, in no acute distress. Mild shortness of breath with moving in bed. SKIN: Unremarkable. [facility] [address] [place] [address] CONSULTATION Name: JD DREW Room #: 447-P [facility] IN M.R.#: [id number] Admission: 08/13/16 Attend Phys: Werner Acuna MD Discharge: Date of : 48 Report #: [id number] LYMPH: Unremarkable. HEENT: Unremarkable except for mild thrush. No adenopathy. NECK: Supple. LUNGS: Decreased breath sounds bilaterally. Few crackles heard, posterior chest. No wheezes. No areas of consolidation. HEART: Regular, without murmur. ABDOMEN: Soft, nontender, no hepatosplenomegaly or mass. EXTREMITIES: Unremarkable. LABORATORY AND DIAGNOSTIC STUDIES: CT scan of the chest, marked emphysema; bilateral infiltrates, both upper and lower lobes; small pleural effusion on the left. Blood and sputum cultures pending. Sodium 142, potassium 4.5, bicarbonate 35, BUN 28, creatinine 1, magnesium 2.1. Hemoglobin 8.3; white count 12; platelet count 622,000; 95% neutrophils; 1% band. ABGs on 7.5 liters, pO2 of 95, pCO2 of 52, pH 7.4. IMPRESSION: A 66-year-old with bilateral pulmonary infiltrates, hemoptysis; etiology yet not determined. PLAN: Recommend evaluation for community acquired and opportunistic infections as well as autoimmune process and malignancy. We will obtain sputum samples. If hemoptysis persists, would need bronchoscopy. We will continue broad antibiotic coverage, pending further studies. <ELECTRONICALLY SIGNED> By: Grupo Hickman MD 08/15/16 1845 1640 1131 Grupo Hickman MD /nt
[~2016-08-13 15:21] MED LIST changes: +AMBIEN 5 MG TABL5 M1 PO; +AUGMENTIN 875875 MG PO; +COLACE100 MG PO; +IRON325 PO
[2016-08-13 15:51] VITALS: BP 150/49
[2016-08-13 16:09] LABS: HEMATOCRIT 28.7 % (37.0-47.0); HEMOGLOBIN 8.9 gm/dL (12.0-15.0); MCH 27.7 pg (26.0-34.0); MCHC 31.2 g/dL (28.0-37.0); MCV 88.8 fL (80.0-100.0); PLATELET COUNT 639 thou/uL (150-400); RBC 3.23 mil/uL (4.20-5.00); RDW 14.9 % (10.5-14.5); WBC 16.7 thou/uL (4.0-11.0)
[2016-08-13 16:12] LABS: MANUAL DIFF YES
[2016-08-13 16:17] LABS: CALCIUM 10.1 mg/dL (8.5-10.1); POTASSIUM 4.7 mmol/L (3.5-5.1)
[2016-08-13 16:25] LABS: ABG SAMPLE TYPE ARTERIAL; BE(vivo) 9.8 mmol/L (-2 to +3); HCO3 35.2 mmol/L (22.0-26.0); O2(CT) 13.2 mL/dL (15.0-23.0); O2Hb 95.7 % (92.0-98.0); PCO2 52.7 mmHg (35.0-45.0); PO2 95.4 mmHg (80.0-100.0); pH 7.443 (7.360-7.450); sO2 97.4 % (92.0-98.0); tCO2 36.9 mmol/L (24.0-30.0)
[2016-08-13 16:26] LABS: STICK SITE R.BRACHIAL
[2016-08-13 16:27] LABS: ABG COMMENT NO COMPLICATIONS.
[2016-08-13 16:31] LABS: ABSOLUTE NEUTROPHILS 15.7 thou/uL (1.4-8.2); TOTAL CELL COUNT 100
[2016-08-13 16:32] LABS: ANISOCYTOSIS 1+; POLYCHROMASIA SLIGHT
[2016-08-13 16:33] LABS: POIKILOCYTOSIS SLIGHT
[2016-08-13 18:10] VITALS: BP 158/52
[2016-08-13 18:30] LABS: % SATURATION 11 % (20-39); IRON 16 ug/dL (50-170); TIBC 140 ug/dL (250-450); UIBC 124 ug/dL
[2016-08-13 19:00] VITALS: BP 155/62
[2016-08-14 04:36] VITALS: BP 130/46
[2016-08-14 04:45] LABS: HEMATOCRIT 24.8 % (37.0-47.0); HEMOGLOBIN 8.3 gm/dL (12.0-15.0); MCHC 33.3 g/dL (28.0-37.0); MCV 87.1 fL (80.0-100.0); PLATELET COUNT 622 thou/uL (150-400); RBC 2.85 mil/uL (4.20-5.00); RDW 14.8 % (10.5-14.5)
[2016-08-14 04:48] LABS: MANUAL DIFF YES
[2016-08-14 05:08] LABS: CALCIUM 9.7 mg/dL (8.5-10.1); MAGNESIUM 2.1 mg/dL (1.8-2.4); POTASSIUM 4.5 mmol/L (3.5-5.1)
[2016-08-14 06:32] LABS: ABSOLUTE NEUTROPHILS 11.5 thou/uL (1.4-8.2); TOTAL CELL COUNT 100
[2016-08-14 08:37] VITALS: BP 162/69
[2016-08-14 12:07] LABS: FOLIC ACID 16.1 ng/mL (8.6-58.9)
[2016-08-14 16:21] VITALS: BP 165/64
[2016-08-14 20:26] VITALS: BP 156/45
[2016-08-15 05:10] LABS: GLYCOHEMOGLOBIN (HGB A1C) 6.5 % (4.8-5.6)
[2016-08-15 06:00] LABS: HEMATOCRIT 25.8 % (37.0-47.0); HEMOGLOBIN 8.3 gm/dL (12.0-15.0); MCH 28.1 pg (26.0-34.0); MCV 87.9 fL (80.0-100.0); RBC 2.94 mil/uL (4.20-5.00); RDW 15.1 % (10.5-14.5); WBC 16.1 thou/uL (4.0-11.0)
[2016-08-15 06:12] LABS: MANUAL DIFF YES; PLATELET COUNT 700 thou/uL (150-400)
[2016-08-15 07:14] LABS: IgA 250 mg/dL (87-352); IgG 1023 mg/dL (700-1600); IgM 51 mg/dL (26-217)
[2016-08-15 07:31] LABS: ABSOLUTE NEUTROPHILS 13.5 thou/uL (1.4-8.2); ATYPICAL LYMPHS 1 %; TOTAL CELL COUNT 100
[2016-08-15 07:32] LABS: ANISOCYTOSIS SLIGHT; OVALOCYTES OCCASIONAL; PLATELET ESTIMATE INCREASED; POIKILOCYTOSIS SLIGHT
[2016-08-15 08:32] VITALS: BP 162/70
[2016-08-15 15:06] LABS: HIV ANTIBODY Non Reactive (Non Reactive)
[2016-08-15 16:45] VITALS: BP 143/62
[2016-08-15 20:09] VITALS: BP 151/61
[2016-08-16 05:40] VITALS: BP 150/66
[2016-08-16 08:50] VITALS: BP 158/53
[2016-08-16 15:23] VITALS: BP 134/51
[2016-08-16 16:08] LABS: c-ANCA <1:20 titer (Neg:<1:20); p-ANCA <1:20 titer (Neg:<1:20)
[2016-08-16 17:10] LABS: HISTOPLASMA MYCELIAL-ID Negative (Negative)
[2016-08-16 20:07] LABS: HISTOPLASMA MYCELIAL-CF Negative (Neg:<1:2); HISTOPLASMA YEAST BY CF Negative (Neg:<1:2)
[2016-08-16 21:05] VITALS: BP 141/54
[2016-08-17 05:15] VITALS: BP 135/47
[2016-08-17 05:54] LABS: HEMATOCRIT 28.4 % (37.0-47.0); MCH 27.9 pg (26.0-34.0); MCHC 31.7 g/dL (28.0-37.0); PLATELET COUNT 766 thou/uL (150-400); RBC 3.23 mil/uL (4.20-5.00); RDW 15.2 % (10.5-14.5); WBC 21.6 thou/uL (4.0-11.0)
[2016-08-17 05:58] LABS: MANUAL DIFF YES
[2016-08-17 06:05] LABS: CALCIUM 9.6 mg/dL (8.5-10.1); MAGNESIUM 2.1 mg/dL (1.8-2.4); POTASSIUM 3.9 mmol/L (3.5-5.1)
[2016-08-17 07:08] VITALS: BP 158/61
[2016-08-17 07:57] LABS: ABSOLUTE NEUTROPHILS 20.1 thou/uL (1.4-8.2); ANISOCYTOSIS SLIGHT; LARGE PLATELETS FEW; MYELOCYTES 1 %; POIKILOCYTOSIS SLIGHT; TOTAL CELL COUNT 100
[2016-08-17 17:23] VITALS: BP 147/57
[2016-08-17 19:40] VITALS: BP 161/63
[2016-08-18 03:32] LABS: HEMATOCRIT 26.6 % (37.0-47.0); HEMOGLOBIN 8.5 gm/dL (12.0-15.0); MCH 28.1 pg (26.0-34.0); MCV 87.6 fL (80.0-100.0); RBC 3.04 mil/uL (4.20-5.00); RDW 15.5 % (10.5-14.5); WBC 18.9 thou/uL (4.0-11.0)
[2016-08-18 03:48] LABS: MANUAL DIFF YES
[2016-08-18 04:32] LABS: ABSOLUTE NEUTROPHILS 17.6 thou/uL (1.4-8.2); MYELOCYTES 1 %; TOTAL CELL COUNT 100
[2016-08-18 04:33] LABS: LARGE PLATELETS FEW; POLYCHROMASIA 1+
[2016-08-18 04:34] LABS: PLATELET COUNT 631 thou/uL (150-400)
[2016-08-18 05:51] VITALS: BP 160/49
[2016-08-18 08:24] VITALS: BP 149/55
[2016-08-18 13:18] LABS: URINE BILIRUBIN NEGATIVE (Negative); URINE BLOOD 3+ (Negative); URINE COLOR YELLOW; URINE GLUCOSE-RANDOM* NEGATIVE (Negative); URINE KETONES 1+ (Negative); URINE LEUKOCYTES-REFLEX NEGATIVE (Negative); URINE PROTEIN (DIPSTICK) 1+ (Negative); URINE SPECIFIC GRAVITY 1.025 (1.003-1.035); URINE UROBILINOGEN 0.2 E.U./dl (0.2-1.0)
[2016-08-18 13:24] LABS: CASTS None Seen /LPF (None Seen); CRYSTALS None Seen /LPF (None Seen); SQUAMOUS 0-3 Few /LPF (0-3); URINE RBC 3-10 Few /HPF (0-2); URINE WBC-REFLEX 0-5 Rare /HPF (0-5)
[2016-08-18 16:16] VITALS: BP 111/40
[2016-08-18 20:19] VITALS: BP 94/42
[2016-08-19 03:55] VITALS: BP 145/66
[2016-08-19 06:09] LABS: HEMATOCRIT 26.4 % (37.0-47.0); HEMOGLOBIN 8.5 gm/dL (12.0-15.0); MCH 28.5 pg (26.0-34.0); MCHC 32.1 g/dL (28.0-37.0); PLATELET COUNT 607 thou/uL (150-400); RBC 2.97 mil/uL (4.20-5.00); RDW 15.8 % (10.5-14.5); WBC 20.9 thou/uL (4.0-11.0)
[2016-08-19 06:17] LABS: CALCIUM 8.9 mg/dL (8.5-10.1); CREATININE 0.8 mg/dL (0.6-1.0); MAGNESIUM 1.8 mg/dL (1.8-2.4); POTASSIUM 3.4 mmol/L (3.5-5.1)
[2016-08-19 07:25] LABS: MANUAL DIFF YES
[2016-08-19 07:39] VITALS: BP 163/59
[2016-08-19 10:38] LABS: ABSOLUTE NEUTROPHILS 19.2 thou/uL (1.4-8.2); METAMYELOCYTES 1 %; TOTAL CELL COUNT 100
[2016-08-19 10:39] LABS: ANISOCYTOSIS 1+; POLYCHROMASIA OCCASIONAL
[2016-08-19 16:17] VITALS: BP 137/40
[2016-08-19 19:28] VITALS: BP 122/40
[2016-08-20 00:58] LABS: HEMATOCRIT 24.3 % (37.0-47.0); HEMOGLOBIN 7.7 gm/dL (12.0-15.0); MCH 28.3 pg (26.0-34.0); MCHC 31.9 g/dL (28.0-37.0); MCV 88.8 fL (80.0-100.0); PLATELET COUNT 549 thou/uL (150-400); RBC 2.73 mil/uL (4.20-5.00); RDW 15.5 % (10.5-14.5); WBC 18.3 thou/uL (4.0-11.0)
[2016-08-20 01:02] LABS: CALCIUM 8.8 mg/dL (8.5-10.1); CREATININE 0.8 mg/dL (0.6-1.0); POTASSIUM 3.7 mmol/L (3.5-5.1)
[2016-08-20 01:23] LABS: MANUAL DIFF YES
[2016-08-20 04:21] LABS: ABSOLUTE NEUTROPHILS 16.8 thou/uL (1.4-8.2); ANISOCYTOSIS SLIGHT; TOTAL CELL COUNT 100
[2016-08-20 04:37] VITALS: BP 176/56
[2016-08-20 08:00] VITALS: BP 145/44
[2016-08-20 10:51] LABS: NIL (NEGATIVE) CONTROL SPOT CT 0; PANEL A SPOT CT 0; PANEL B SPOT CT 0; POSITIVE CONTROL SPOT COUNT > 20; T-SPOT.TB Negative
[2016-08-20 16:00] VITALS: BP 146/59
[2016-08-20 19:36] VITALS: BP 126/64
[2016-08-21 04:00] VITALS: BP 148/86
[2016-08-21 05:53] LABS: HEMATOCRIT 27.3 % (37.0-47.0); HEMOGLOBIN 8.5 gm/dL (12.0-15.0); MCH 28.2 pg (26.0-34.0); MCHC 31.1 g/dL (28.0-37.0); MCV 90.7 fL (80.0-100.0); PLATELET COUNT 501 thou/uL (150-400); RBC 3.01 mil/uL (4.20-5.00); RDW 15.4 % (10.5-14.5); WBC 19.4 thou/uL (4.0-11.0)
[2016-08-21 05:58] LABS: MANUAL DIFF YES
[2016-08-21 06:06] LABS: CALCIUM 9.2 mg/dL (8.5-10.1)
[2016-08-21 08:19] VITALS: BP 128/47
[2016-08-21 08:21] LABS: ABSOLUTE NEUTROPHILS 17.5 thou/uL (1.4-8.2); PLATELET ESTIMATE INCREASED; TOTAL CELL COUNT 100
[2016-08-21 17:45] VITALS: BP 117/51
[2016-08-21 20:29] VITALS: BP 124/48
[2016-08-22 05:30] VITALS: BP 161/69
[2016-08-22 06:06] LABS: HEMATOCRIT 24.2 % (37.0-47.0); HEMOGLOBIN 7.7 gm/dL (12.0-15.0); MCH 27.9 pg (26.0-34.0); MCHC 31.6 g/dL (28.0-37.0); MCV 88.2 fL (80.0-100.0); PLATELET COUNT 521 thou/uL (150-400); RBC 2.75 mil/uL (4.20-5.00); RDW 15.1 % (10.5-14.5); WBC 19.4 thou/uL (4.0-11.0)
[2016-08-22 06:18] LABS: CREATININE 0.9 mg/dL (0.6-1.0); POTASSIUM 3.6 mmol/L (3.5-5.1)
[2016-08-22 06:52] LABS: MANUAL DIFF YES
[2016-08-22 07:59] LABS: ABSOLUTE NEUTROPHILS 17.5 thou/uL (1.4-8.2); HYPOCHROMASIA 1+; PLATELET ESTIMATE INCREASED; TOTAL CELL COUNT 100
[2016-08-22 08:29] VITALS: BP 138/38
[2016-08-22 12:36] LABS: CALCIUM 9.5 mg/dL (8.5-10.1); CREATININE 1.2 mg/dL (0.6-1.0); POTASSIUM 4.2 mmol/L (3.5-5.1)
[2016-08-22 12:46] LABS: MAGNESIUM 2.2 mg/dL (1.8-2.4); TROPONIN-I 0.07 ng/mL (<0.04-0.07)
[2016-08-22 13:18] LABS: ABG SAMPLE TYPE ARTERIAL; BE(vivo) 6.3 mmol/L (-2 to +3); HCO3 32.7 mmol/L (22.0-26.0); LACTATE 1.37 mmol/L (0.5-2.0); O2(CT) 12.1 mL/dL (15.0-23.0); O2Hb 95.4 % (92.0-98.0); PCO2 58.4 mmHg (35.0-45.0); PO2 86.4 mmHg (80.0-100.0); Pressure Support 16 cm H20; STICK SITE R.RADIAL; VDS BIPAP SPONT TIMED cc; pH 7.366 (7.360-7.450); tCO2 34.5 mmol/L (24.0-30.0)
[2016-08-22 13:19] LABS: ABG COMMENT 16/6 I/E RR 10
[2016-08-22 16:44] VITALS: BP 135/54
[2016-08-23 06:09] LABS: HEMATOCRIT 23.8 % (37.0-47.0); HEMOGLOBIN 7.5 gm/dL (12.0-15.0); MCH 27.8 pg (26.0-34.0); MCHC 31.3 g/dL (28.0-37.0); MCV 88.8 fL (80.0-100.0); PLATELET COUNT 487 thou/uL (150-400); RBC 2.68 mil/uL (4.20-5.00); RDW 15.4 % (10.5-14.5); WBC 18.1 thou/uL (4.0-11.0)
[2016-08-23 06:13] LABS: MANUAL DIFF YES
[2016-08-23 06:19] VITALS: BP 146/72
[2016-08-23 06:39] LABS: POTASSIUM 3.8 mmol/L (3.5-5.1)
[2016-08-23 07:50] LABS: ANISOCYTOSIS 1+; OVALOCYTES FEW; TOTAL CELL COUNT 100
[2016-08-23 16:00] VITALS: BP 163/63
[2016-08-23 20:03] VITALS: BP 141/77
[2016-08-24 05:52] VITALS: BP 166/67
[2016-08-24 06:01] LABS: HEMATOCRIT 23.4 % (37.0-47.0); HEMOGLOBIN 7.2 gm/dL (12.0-15.0); MCH 27.7 pg (26.0-34.0); MCHC 30.7 g/dL (28.0-37.0); MCV 90.2 fL (80.0-100.0); PLATELET COUNT 450 thou/uL (150-400); RBC 2.59 mil/uL (4.20-5.00); RDW 15.5 % (10.5-14.5); WBC 18.5 thou/uL (4.0-11.0)
[2016-08-24 06:17] LABS: CALCIUM 8.9 mg/dL (8.5-10.1); POTASSIUM 3.8 mmol/L (3.5-5.1)
[2016-08-24 06:19] LABS: MANUAL DIFF YES
[2016-08-24 07:39] LABS: ABSOLUTE NEUTROPHILS 17.8 thou/uL (1.4-8.2); ANISOCYTOSIS 1+; TOTAL CELL COUNT 100
[2016-08-24 08:00] VITALS: BP 160/70
[2016-08-24 16:00] VITALS: BP 179/76
[2016-08-24 20:45] VITALS: BP 181/72
[2016-08-24 21:45] VITALS: BP 158/76
[2016-08-25 00:58] LABS: HEMATOCRIT 24.7 % (37.0-47.0); HEMOGLOBIN 7.7 gm/dL (12.0-15.0); MCHC 31.2 g/dL (28.0-37.0); MCV 89.8 fL (80.0-100.0); PLATELET COUNT 440 thou/uL (150-400); RBC 2.75 mil/uL (4.20-5.00); RDW 15.6 % (10.5-14.5); WBC 16.9 thou/uL (4.0-11.0)
[2016-08-25 01:05] LABS: CALCIUM 9.3 mg/dL (8.5-10.1); POTASSIUM 3.6 mmol/L (3.5-5.1)
[2016-08-25 01:22] LABS: MANUAL DIFF YES
[2016-08-25 04:28] LABS: ABSOLUTE NEUTROPHILS 14.9 thou/uL (1.4-8.2); ANISOCYTOSIS 1+; HYPOCHROMASIA 2+; LARGE PLATELETS RARE; MYELOCYTES 1 %; TOTAL CELL COUNT 100
[2016-08-25 16:00] VITALS: BP 151/68
[2016-08-25 20:45] VITALS: BP 158/56
[2016-08-26 04:45] LABS: HEMATOCRIT 24.6 % (37.0-47.0); HEMOGLOBIN 7.7 gm/dL (12.0-15.0); MCHC 31.1 g/dL (28.0-37.0); PLATELET COUNT 389 thou/uL (150-400); RBC 2.73 mil/uL (4.20-5.00); RDW 15.5 % (10.5-14.5); WBC 15.6 thou/uL (4.0-11.0)
[2016-08-26 04:47] LABS: MANUAL DIFF YES
[2016-08-26 04:53] LABS: CALCIUM 9.6 mg/dL (8.5-10.1); CREATININE 0.8 mg/dL (0.6-1.0); POTASSIUM 3.9 mmol/L (3.5-5.1)
[2016-08-26 05:19] LABS: ABSOLUTE NEUTROPHILS 15.4 thou/uL (1.4-8.2); ANISOCYTOSIS SLIGHT; TOTAL CELL COUNT 100
[2016-08-26 06:27] VITALS: BP 164/70
[2016-08-26 08:00] VITALS: BP 175/79
[2016-08-26 20:55] VITALS: BP 150/70
[2016-08-27 03:20] VITALS: BP 160/71
[2016-08-27 08:00] VITALS: BP 188/86
[2016-08-27 09:11] LABS: ANTI-DNA SCREEN <1 IU/mL (0-9); ANTI-RNP 2.3 AI (0.0-0.9)
[2016-08-27] MEDS ORDERED: DUONEB 2.5-0.5 M3 ML INH ×2 (14:23)
[2016-08-27] MEDS ORDERED: SOLU-MEDRO40 MG/1 M2 IV PUSH (14:23)
[2016-08-27] MEDS ORDERED: PULMICORT0.5 MG/21 INH (14:23)
[2016-08-27 16:00] VITALS: BP 156/74
[2016-08-27 16:08] LABS: c-ANCA <1:20 titer (Neg:<1:20); p-ANCA <1:20 titer (Neg:<1:20)
== END 2016-08-27 18:23 | DRG 871 ==
LOC: ER 15:21 → EROBS 17:36 → 4S 17:36
PROVIDERS: Emergency Medicine; Internal Medicine; Internal Medicine Endocrinology, Diabetes & Metabolism; Internal Medicine Pulmonary Disease; Specialist
PROC: 0BB98ZX Excision of Lingula Bronchus, Via Natural or Artificial Opening Endoscopic, Diagnostic (ICD-10-PCS; principal; 2016-08-20)
DX: A41.9 Sepsis, unspecified organism (principal); J96.21 Acute and chronic respiratory failure with hypoxia; J15.6 Pneumonia due to other Gram-negative bacteria; E43 Unspecified severe protein-calorie malnutrition; I50.22 Chronic systolic (congestive) heart failure; J44.1 Chronic obstructive pulmonary disease with (acute) exacerbation; R04.2 Hemoptysis; E87.0 Hyperosmolality and hypernatremia; J44.0 Chronic obstructive pulmonary disease with (acute) lower respiratory infection; K21.9 Gastro-esophageal reflux disease without esophagitis; D64.9 Anemia, unspecified; I11.0 Hypertensive heart disease with heart failure; J84.10 Pulmonary fibrosis, unspecified; E78.5 Hyperlipidemia, unspecified; R73.9 Hyperglycemia, unspecified; Z68.21 Body mass index [BMI] 21.0-21.9, adult; Z88.6 Allergy status to analgesic agent; Z87.891 Personal history of nicotine dependence; Z90.49 Acquired absence of other specified parts of digestive tract; Z90.710 Acquired absence of both cervix and uterus; Z82.49 Family history of ischemic heart disease and other diseases of the circulatory system; Z79.899 Other long term (current) drug therapy; Z79.52 Long term (current) use of systemic steroids
CPT/HCPCS: 10100